=== PATIENT | male | born 1990 | race Caucasian/White ===

== ENCOUNTER 2019-08-23 06:14 | Emergency (ER) | payer MEDICAID ==
[~2019-08-23] VITALS: Ht 175.3 cm; Wt 74.8 kg
--- NOTE | 2019-08-23 06:20 | NUR ---
ED Nurse Note: pt called, not in waiting room
--- NOTE | 2019-08-23 06:23 | NUR ---
ED Nurse Note: PT WALKED IN FROM STREET STATING HE WANTS TO BE SEEN BY IRONM[employer]DER FOR PLACEMENT. PT STATES COUGH X1DAY AND IS A SMOKER. PT DOES NOT PRESENT WITH ANY COMPLAINTS AT THIS TIME. DOES NOT PRESENT WITH FEVER. VSS, NAD.
[2019-08-23 06:32] VITALS: BP 138/74
[2019-08-23 07:05] VITALS: BP 138/74
--- NOTE | 2019-08-23 07:05 | NUR ---
ER DISCHARGE NOTE: Patient is cleared to be discharged per Dr. Villatoro, pt is aox4, on room air, with stable vital signs. pt was given dc instructions and list of resources to f/u, meal provided. Patient was able to verbalize understanding, but refused to sign DC papers. Patient id band removed. pt is able to ambulate with steady gait. pt took all belongings.
--- NOTE | 2019-08-23 09:02 | Emergency Room Report ---
History of Present Illness General Chief Complaint: Behavioral Complaint Source: Patient Present Illness HPI 29-year-old male presents to ED for evaluation. States that he is homeless. Needs a place to stay. Is hungry. Denies any fevers or chills. Denies any dizziness or weakness. Denies any alcohol or drug use. No other aggravating relieving factors. Denies any other associated symptoms Allergies: Coded Allergies: No Known Allergies (Unverified , 08/23/19) COVID-19 Screening Contact w/high risk pt: No Recent Travel to affected area: No Experienced COVID-19 symptoms?: No COVID-19 symptoms experienced: Cough Patient History Past Medical History: psych hx Past Surgical History: none Pertinent Family History: none Social History: Denies: smoking, alcohol use, drug use Immunizations: UTD Reviewed Nursing Documentation: PMH: Agreed; PSxH: Agreed Nursing Documentation-PMH History Of Psychiatric Problem: Yes - bipolar, schizophrenia, depression Review of Systems All Other Systems: negative except mentioned in HPI Physical Exam Vital Signs Date Time Temp Pulse Resp B/P (MAP) Pulse Ox O2 Delivery O2 Flow Rate FiO2 08/23/19 06:21 98.8 66 20 141/67 (91) 96 Room Air 08/23/19 06:32 99 Sp02 EP Interpretation: reviewed, normal General Appearance: no apparent distress, alert, GCS 15, non-toxic Head: normocephalic, atraumatic Eyes: bilateral eye normal inspection, bilateral eye PERRL ENT: hearing grossly normal, normal pharynx, no angioedema, normal voice Neck: full range of motion, supple/symm/no masses Respiratory: chest non-tender, lungs clear, normal breath sounds, speaking full sentences Cardiovascular #1: regular rate, rhythm, no edema Cardiovascular #2: 2+ carotid (R), 2+ carotid (L), 2+ radial (R), 2+ radial (L) , 2+ dorsalis pedis (R), 2+ dorsalis pedis (L) Gastrointestinal: normal bowel sounds, non tender, soft, non-distended, no guarding, no rebound Rectal: deferred Genitourinary: normal inspection, no CVA tenderness Musculoskeletal: back normal, normal range of motion, gait/station normal, non- tender Neurologic: alert, motor strength/tone normal, oriented x3, sensory intact, responsive, speech normal Psychiatric: judgement/insight normal, memory normal, mood/affect normal, no suicidal/homicidal ideation Reflexes: 3+ bicep (R), 3+ bicep (L), 3+ tricep (R), 3+ tricep (L), 3+ knee (R) , 3+ knee (L) Lymphatic: no adenopathy Medical Decision Making Homeless Attestation I, The treating physician Dr. Villatoro, have assessed and agrees that patient is medically stable for discharge to an outpatient disposition. Diagnostic Impression: Primary Impression: Lack of housing ER Course Hospital Course 29 yo M presents to ED requesting long-term referrals. hungry Clinical course Patient placed on stretcher. Given that patient is able to provide an adequate history, I see no need to check blood work or place an IV. Patient allowed to sleep. My assessment shows no evidence of SI/HI requiring psychiatric evaluation. Patient allowed to rest. Given food. Will discharge to long-term referrals. Homeless checklist completed. Safe for discharge and close outpatient follow- up. I will provide referrals Diagnosis - lack of housing stable and discharged to home. Followup with PMD. Return to ED if symptoms recur or worsen Last Vital Signs Date Time Temp Pulse Resp B/P (MAP) Pulse Ox O2 Delivery O2 Flow Rate FiO2 08/23/19 07:05 98.8 67 20 138/74 99 Room Air 99 Status: improved Disposition: HOME, SELF-CARE Condition: Stable Referrals: [facility] Patient Instructions: Self-Destructive Behavior Luc Villatoro MD August 23, 2019 09:02
== END 2019-08-23 07:05 | disposition home or self-care (01) ==
LOC: EMR 06:40
DX: Z59.0 Homelessness (principal); F31.9 Bipolar disorder, unspecified; F20.9 Schizophrenia, unspecified; F32.9 Major depressive disorder, single episode, unspecified; R05 Cough
CPT/HCPCS: 99281